=== PATIENT | female | born 2005 | race American Indian/Alaskan Native ===

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

== ENCOUNTER 2024-01-23 17:46 | Emergency (ER) | payer MEDICAID, SELFPAY ==
[2024-01-23 18:02] VITALS: BP 138/80; PULSE 95; RESP 18; TEMP 36.9; O2SAT 95; BMI 38.2
--- NOTE | 2024-01-23 18:06 | EDNOTE_ITS ---
<Statement entered by Naomie Summers MD - 01/23/24 22:01> As co-signing physician, I was present and available for consult prn. I concur with the plan and care as documented by the midlevel provider. ED Fever RME/HPI General Chief Complaint: Fever Stated Complaint: FEVER WITH SORE THROAT; 26 WKS PREG Time Seen by Provider: 01/23/24 18:04 Arrival date/time: 01/23/24 17:46 18 year old female present to emergency room with c/o of fever and sore throat for 2 days. per patient recently co worker + strep and concerns she got exposed LOCATION: posterior oral pharynx SEVERITY: Symptoms are described as being severe with limitations on activities of daily living QUALITY: Symptoms are described as being dull or achy CONTEXT: The patient is unable to identify any inciting events. DURATION/TIMING: The symptoms started approximately 2 day ago and have been constant this then. ASSOCIATED SYMPTOMS: The patient is unable to identify any other associated symptoms. MODIFYING FACTORS: worse with swallowing PERTINENT ROS: denies any food or liquids getting stuck, denies any generalized weakness, denies any trauma, no chest pain, no abdominal pain, no rashes, no joint swelling no hematuria, dysuria, urgency,frequency, flank/abd pain or vag bleeding REVIEW OF SYSTEMS: See History of Present Illness - with the exception of those mentioned in the history of present illness, all other systems reviewed and reported as negative GENERAL: In general the patient is awake, interactive, in an emergency department gurney. HEAD/EYES/EARS/NOSE/THROAT: normo-cephalic, atraumatic, mucus membranes are moist, anicteric, palpebral conjunctiva is pink, trachea is midline. CARDIOVASCULAR: regular rate and regular rhythm, no murmurs, heart sounds are not distant, strong pulses in all four extremities that are equal and symmetric bilateral upper and lower extremities, normal capillary refill. CHEST/PULMONARY: normal chest rise and fall, good air movement, clear to auscultation bilaterally, normal inspiratory to expiratory ratios without evidence of respiratory distress. NECK: No midline/Paraspinal tenderness, no step off ROM/Strenght intact No Kernig and bruzinski sign. No trauma ABDOMEN: soft, not tender, no masses appreciated BACK: normal range of motion without pain. NEUROLOGICAL: cranio-facial features are symmetric, moves all four extremities equally without obvious limitations or weakness. EXTREMITY: no tenderness to palpation over the long bones or large joints of the bilateral upper and lower extremities, no joint swelling, no joint erythema, no signs of trauma, no unilateral leg swelling and no peripheral edema. SKIN: warm, dry, well-perfused, no jaundice, no rash, no telangiectasias or petechia. PSYCH: calm, cooperative, no evidence of psychosis or agitation Related Data Home Medications ?Medication ?Instructions ?Recorded ?Confirmed vit no.95-ferrous 1 tab PO DAILY 12/31/23 12/31/23 fumarate 28 mg-folic acid 800 mcg tablet () Previous Rx's ?Medication ?Instructions ?Recorded albuterol sulfate 90 mcg/actuation 2 inh inhalation QID PRN shortness 09/19/23 breath activated powder of breath or wheezing #1 ea inhaler,sensor (Proair Digihaler) Allergies Allergy/AdvReac Type Severity Reaction Status Date / Time No Known Allergies Allergy Verified 01/23/24 17:48 Course Course Course Narrative: strep, covid/flu Quality Measures none Orders Category Date Time Status Bedside COVID-19 Antigen Test NOW Care 01/23/24 18:04 Completed Bedside Influenza A&B Antigen Test NOW Care 01/23/24 18:05 Completed Strep A Rapid Stat Lab 01/23/24 18:09 Completed Vital Signs Vital signs: Vital Signs Temperature 98.5 F 01/23/24 18:02 Pulse Rate 95 01/23/24 18:02 Respiratory Rate 18 01/23/24 18:02 Blood Pressure 138/80 H 01/23/24 18:02 Pulse Oximetry (%) 95 01/23/24 18:02 Oxygen Delivery Method Room Air 01/23/24 18:02 Fever Patient data External records reviewed:: [facility] previous records and None Clinical information provided by:: patient and family Social determinants that could affect healthcare access:: none Patient has the following chronic illnesses:: none How is presenting disease/condition affected by chronic disease/condition?: no chronic disease Evaluation data The following diagnostics were reviewed and interpreted by me:: lab results Lab and/or radiology exams considered but not ordered:: none Interpretation Summary: strep covid/flu Medications / Prescriptions Medications or Prescriptions considered but not ordered:: none Medication administrations:: none Consultations Consultation(s) initiated? (list below): No Diagnosis Fever Differential Diagnosis: viral infection, influenza and other (strep) Most likely diagnosis given after review of the tests above:: viral infection Admission Indicated Admission indicated?: not indicated Admission Request Was there a request for admission?: No Disposition Plan Disposition Plan: Discharge Discharge Attestation Discharge Attestation: The patient and all family members were given an opportunity to ask questions and understood the discharge instructions. Discharge instructions specifically effects, indications for sooner follow up or return to the emergency department, and the expected course of current diagnosis. Patient condition: Stable Discharge Plan Plan Patient Disposition: HOME (Self Care) Health Concerns: Follow with PMD as directed Take tylenol as need Return to ED if sx worsen Prescriptions/Referrals Prescriptions/Med Rec: No Action Proair Digihaler 90 mcg/actuation aero powdr breath act w/sensor 2 inh inhalation QID PRN (Reason: shortness of breath or wheezing) Qty: 1 0RF PNV cmb#95-ferrous fumarate-FA [] 28 mg iron- 800 mcg tablet 1 tab PO DAILY Patient Comments: TAKE 1 TABLET BY MOUTH ONCE DAILY Referrals: No Primary/Family,Physician [Primary Care Provider] - In 1 week Problem List Clinical Impression: Viral infection Patient/Caregiver Discharge Instructions Education Materials: ED Viral Syndrome (Adult) Print Language: [place] Stand Alone Forms: Alejandra Award Info., Work/School Release, Patient Portal Info Letter
[2024-01-23 19:06] LABS: Strep A Rapid Negative (Negative)
[2024-01-23 19:28] VITALS: RESP 18
== END 2024-01-23 19:28 | disposition home or self-care (01) ==
PROVIDERS: Physician Assistant; Emergency Provider Emergency Medicine
DX: B34.9 Viral infection, unspecified (principal)
CPT/HCPCS: 87400; 87651; 87811; 99283

== ENCOUNTER 2024-02-04 18:58 | Observation (INO) | payer MEDICAID, SELFPAY ==
[2024-02-04 19:06] VITALS: BP 128/61; PULSE 81
[2024-02-04 19:33] VITALS: TEMP 36.7; BMI 42.0
--- NOTE | 2024-02-04 19:33 | XR_ITS ---
Examination: Complete OB ultrasound greater than 14 weeks Date and time of exam: February 04, 2024 2018 hrs. Indications: Decreased movement beginning 90 minutes ago Findings: Viable intrauterine single fetus with single amniotic sac presentation cephalic spine maternal right Cardiac motion 132 BPM Placenta posterior grade 1 Umbilical cord insertion seen Amniotic fluid index 15.4 cm Cervix 3.2 cm Right ovary 3.3 x 2.2 cm arterial flow Left ovary obscured by bowel gas. Composite estimated gestational age based on BPD, head circumference, abdominal circumference, femur length is 27 weeks 0 days Estimated weight 920.7 g. Survey of intracranial anatomy, spinal anatomy, abdominal anatomy, four-chamber heart performed with no abnormalities identified. Impression: Viable intrauterine gestation cephalic presentation.
[2024-02-04 21:05] VITALS: BP 126/64; PULSE 78
== END 2024-02-04 21:55 | disposition home or self-care (01) ==
PROVIDERS: Admitting Provider Obstetrics & Gynecology; Visit Provider Obstetrics & Gynecology
DX: O36.8120 Decreased fetal movements, second trimester, not applicable or unspecified (principal); Z3A.27 27 weeks gestation of pregnancy
CPT/HCPCS: 59025; 59899; 76805

== ENCOUNTER 2024-02-23 18:30 | Outpatient (CLI) | payer MEDICAID, SELFPAY ==
[2024-02-23] VITALS (8 sets, daily range): PULSE 68–86; RESP 18; TEMP 36.7; O2SAT 98–100; BMI 40.8
== END 2024-02-23 19:35 | disposition home or self-care (01) ==
LOC: S4S1 18:38 → S4SX 18:38
PROVIDERS: Referring Provider Obstetrics & Gynecology; Visit Provider Obstetrics & Gynecology
DX: O36.8130 Decreased fetal movements, third trimester, not applicable or unspecified (principal); Z3A.30 30 weeks gestation of pregnancy
CPT/HCPCS: 59025

== ENCOUNTER 2024-03-01 11:23 | Observation (INO) | payer MEDICAID, SELFPAY ==
[2024-03-01 11:30] VITALS: PULSE 111; O2SAT 99
[2024-03-01 11:31] VITALS: BP 136/75; PULSE 103
[2024-03-01 11:35] VITALS: PULSE 100; O2SAT 99
[2024-03-01 11:36] VITALS: BP 136/75; PULSE 92; RESP 16; RESP 99; TEMP 36.6; O2SAT 99; BMI 41.1
[2024-03-01 11:40] VITALS: PULSE 96; O2SAT 99
[2024-03-01 11:45] VITALS: PULSE 95; O2SAT 100
--- NOTE | 2024-03-01 12:20 | PD.LDPN ---
Documentation for date of: 03/01/24 OB Labor Progress Note Assessment and Plan Comments: Ankita is a 19yo with SIUP at 31+wk presenting to L&D for lack of movement since 0100 last night. She notes baby usually moves at night and in the morning, especially after eating, but she hasn't felt movement this morning even after eating. She notes no ctx, no lof, no vaginal bleeding. This has been uncomplicated, she has had regular OB care with [place] OBGYN [place] city. She does have history significant for term IUFD, which has made her understandably more nervous about feeling regular movement. Plan is in place with her OBGYN to begin regular APFTs in office starting at 32 weeks. ROS negative other than what was described above. Vitals wnl, afebrile General: well developed, well nourished, no acute distress, conversant Cardiac: normal heart rate Lungs: breathing without distress Abdomen: soft, gravid, non-tender, no rebound or guarding Extremities: no pain with palpation of calves NST: reassuring for gestational age with 10x10 accels, no decels, mod jose l Bedside ultrasound performed by Dr. Fairchild: SIUP with cephalic presentation, +FCA, +FM, posterior placenta, LUCHO 13cm Assessment: Ankita is a 19yo with SIUP at 31+wk with decreased movement. Vitals wnl, benign exam. Reassuring status based on NST/LUCHO (modified BPP). Plan: -Provided reassurance regarding findings -Continue routine follow up with OBGYN, begin APFTs at 32 weeks as planned -Discussed return precautions at length including FKCs Dr. Fairchild
== END 2024-03-01 12:25 | disposition home or self-care (01) ==
PROVIDERS: Admitting Provider Obstetrics & Gynecology; Visit Provider Obstetrics & Gynecology
DX: O36.8130 Decreased fetal movements, third trimester, not applicable or unspecified (principal); Z3A.31 31 weeks gestation of pregnancy
CPT/HCPCS: 59025; 59899

== ENCOUNTER 2024-03-17 18:02 | Observation (INO) | payer MEDICAID, SELFPAY ==
[2024-03-17] VITALS (36 sets, daily range): BP systolic 117–140; BP diastolic 59–71; PULSE 75–108; RESP 16–98; TEMP 36.7; O2SAT 94–100; BMI 41.5
[2024-03-17 19:09] LABS: Collection Type, Urine Clean Catch
[2024-03-17] MEDS: ACETAMINOPHEN 500 MG TABLET 1000 MG PO (19:15)
[2024-03-17 19:22] LABS: Creatinine,Random Urine 55 mg/dL (30-125); Protein Total, Random Urine 14 mg/dL (1-14)
[2024-03-17 19:25] LABS: Bacteria,Urine 3+; Bilirubin,Urine Negative (Negative); Blood,Urine Negative (Negative); Clarity,Urine Turbid (Clear/Hazy); Color,Urine Lt-Yellow (Lt Yel-Yel); Glucose, Urine Negative (Negative); Ketones,Urine Negative (Negative); Leukocyte Esterase,Urine Positive (Negative); Nitrite,Urine Negative (Negative); Protein,Urine Negative (Neg - Trace); RBC,Urine 2 /hpf (0-3); Squamous Epithelial Cell,Urine 10 /hpf (0-5); Urobilinogen,Urine Negative mg/dL (0.0-1.0); WBC,Urine 4 /hpf (0-5)
[2024-03-17 19:25] LABS: Basophils % (Auto) 0 % (0-2.5); Eosinophils # (Auto) 0.3 Thou/mm3 (0.0-0.5); Eosinophils % (Auto) 2 % (0-10); Hematocrit 34.3 % (36.0-46.0); Hemoglobin 11.5 g/dL (12.0-16.0); Immature Granulocytes % (Auto) 1 % (0-0); Immature Granulocytes Auto 0.11 Thou/mm3 (0.00-0.00); Lymphocytes # (Auto) 2.2 Thou/mm3 (1.0-4.8); Lymphocytes % (Auto) 15 % (10-50); Mean Corpuscular HGB Conc 33.5 g/dl (31.0-37.0); Mean Corpuscular Hemoglobin 28.5 pg (25.0-35.0); Mean Corpuscular Volume 85 fL (80-100); Monocytes # (Auto) 1.3 Thou/mm3 (0.0-0.8); Monocytes % (Auto) 9 % (0-12); Neutrophils # (Auto) 10.7 Thou/mm3 (1.8-7.7); Neutrophils % (Auto) 73 % (37-80); Nucleated Red Blood Cell % 0 /100 WBC (0); Platelet Count 174 Thou/mm3 (140-440); RDW Standard Deviation 39.9 fL (36.4-46.3); Red Blood Count 4.04 Miln/mm3 (4.00-5.20); White Blood Count 14.6 Thou/mm3 (4.5-11.0)
[2024-03-17 19:46] LABS: Fibrinogen 406 mg/dL (175-375); Partial Thromboplastin Time 23.4 Seconds (22.0-36.0); Prothrombin Time 10.5 Seconds (9.0-12.2)
[2024-03-17 19:49] LABS: Alanine Aminotransferase 20 U/L (10-49); Albumin, Serum 3.6 gm/dL (3.5-5.0); Albumin/Globulin Ratio 1.4 (1.2-2.2); Alkaline Phosphatase 92 U/L (46-116); Anion Gap 9 (7-16); Aspartate Amino Transferase 12 U/L (0-34); BUN/Creatinine Ratio 10 Ratio (12-20); Bilirubin,Total 0.3 mg/dL (0.3-1.2); Blood Urea Nitrogen 6 mg/dL (9-23); Calcium 8.8 mg/dL (8.3-10.6); Calcium (Corrected) 9.1 mg/dL (8.5-10.1); Carbon Dioxide 22.9 mMol/L (20.0-31.0); Chloride 106 mMol/L (98-107); Creatinine (Component) 0.6 mg/dL (0.6-1.3); Estimated Creatinine Clearance 194.6 mL/min (>60); Globulin 2.6 gm/dL (2.3-3.5); Glucose 95 mg/dL (74-106); LDH (Lactate Dehydrogenase) 185 U/L (120-246); Osmolality,Calculated 273 (275-295); Potassium 3.6 mMol/L (3.4-5.1); Sodium 138 mMol/L (136-145); Total Protein 6.2 gm/dL (5.7-8.2); Uric Acid 4.5 mg/dL (3.1-7.8); eGFR > 60 See Note
--- NOTE | 2024-03-17 20:37 | PD.LDPN ---
Documentation for date of: 03/17/24 OB Labor Progress Note Assessment and Plan Comments: Triage Note Ankita is a 19yo with SIUP at 33w4d presenting to L&D by instruction of home health nurse for PIH workup. She had mild range bp noted when she had visit by home health nurse today and this was first occasion in . She also noted to the nurse that she had a headache. Didn't take tylenol at home, just tried to nap but headache persisted. She notes no painful/regular ctx, no vaginal bleeding, no lof. Normal movement. Only complaint is SARABIA. She denies vision changes and RUQ pain. Pertinent PMhx/ hx: Patient receives care with OBGYN Dr. Brito in [place] and is followed closely with growth scans for IUGR which as of today resolved, per patient (13%ile on growth scan). She also has history of an IUFD at term in 2022 and was delivered via section. Plan for delivery is RLTCS at 37 weeks. She has history of a seizure-like disorder and has care with a neurologist at [facility]. Only takes a PNV. ROS negative other than what was described above. 2 barely mild range bp's right after one another followed by 9 normal blood pressures, afebrile General: well developed, well nourished, no acute distress, conversant Cardiac: normal heart rate Lungs: breathing without distress Abdomen: soft, gravid, non-tender, no rebound or guarding Extremities: trace BLE edema NST: Reactive, +accels, no decels, mod jose l [place]: no ctx pattern Labs: Hgb 11.5 Plt 174 serum creat 0.6 AST/ALT wnl urine prot:creat 0.[address] Fairchild: SIUP with cephalic presentation, MVP 5cm, +FCA, +FM, posterior placenta Assessment: Ankita is a 19yo with SIUP at 33w4d with no evidence of GHTN or pre-eclampsia at this time. Overwhelmingly normotensive, benign exam. Reassuring status. Headache has improved. Plan: -Discussed findings and provided reassurance, answered all questions to patient and partner's apparent satisfaction -Continue routine follow up with OBGYN on Thursday as scheduled. Discussed importance of conveying today's triage assessment to her OBGYN. -Discussed ok to take tylenol 1000mg PO Q6hr prn headache + massage, warm shower -Discussed return precautions at length, especially for persistent headache, vision changes and RUQ pain Leesa Fairchild MD
== END 2024-03-17 21:12 | disposition home or self-care (01) ==
PROVIDERS: Admitting Provider Obstetrics & Gynecology; Visit Provider Obstetrics & Gynecology
DX: O26.893 Other specified pregnancy related conditions, third trimester (principal); R51.9 Headache, unspecified; Z3A.33 33 weeks gestation of pregnancy
CPT/HCPCS: 36415; 59025; 59899; 80053; 81001; 82570; 83615; 84156; 84550; 85025; 85384; 85610; 85730; A9270

== ENCOUNTER 2024-03-21 13:41 | Observation (INO) | payer MEDICAID, SELFPAY ==
[2024-03-21 13:45] VITALS: BP 151/68; PULSE 110; RESP 16; RESP 98; TEMP 36.8; BMI 41.5
[2024-03-21 13:51] VITALS: BP 130/63; PULSE 97
== END 2024-03-21 14:10 | disposition home or self-care (01) ==
PROVIDERS: Admitting Provider Obstetrics & Gynecology; Visit Provider Obstetrics & Gynecology
DX: O36.8130 Decreased fetal movements, third trimester, not applicable or unspecified (principal); Z3A.34 34 weeks gestation of pregnancy
CPT/HCPCS: 59025; 59899

== ENCOUNTER 2024-03-24 21:35 | Observation (INO) | payer MEDICAID, SELFPAY ==
[2024-03-24] VITALS (15 sets, daily range): BP systolic 111–128; BP diastolic 56–79; PULSE 67–90; RESP 15–98; TEMP 37.4; O2SAT 91–100; BMI 41.4
--- NOTE | 2024-03-24 22:01 | XR_ITS ---
Examination: Complete OB ultrasound greater than 14 weeks Date and time of exam: March 24, 2024 1008 hours INDICATIONS: Decreased movement today, leaking amniotic fluid Findings: Viable intrauterine single fetus with single amniotic sac presentation cephalic Cardiac motion 143 BPM Placenta posterior grade 2 Umbilical cord insertion 3 vessel seen Amniotic fluid index 10.5 cm spine maternal left Cervix 3.2 cm Ovaries obscured by bowel gas. Composite estimated gestational age based on BPD, head circumference, abdominal circumference, femur length is 34 weeks 1 day Estimated weight 2300 g. Survey of intracranial anatomy, spinal anatomy, abdominal anatomy, four-chamber heart performed with no abnormalities identified. Impression: Viable intrauterine gestation cephalic presentation.
--- NOTE | 2024-03-24 22:26 | XR_ITS ---
Examination: Biophysical profile, ultrasound Date and time of exam: March 24, 2024 10:29 PM INDICATIONS: Decreased movement today, leaking amniotic fluid Technique: Multiple transabdominal sonographic images of the pelvis abdomen obtained. Attention is directed to the breathing movement, gross body movement, amniotic fluid volume and tone. Findings: Amniotic fluid index 9.8 cm Total biophysical profile is 8 of 8. breathing movement is 2. Gross body movement is 2. tone is 2. Qualitative amniotic fluid volume is 2 Impression: Biophysical profile is 8 of 8.
[2024-03-24 22:40] LABS: ROM Kit Lot # 57809118; ROM Swab Mixed By: DELEN1; Rupture of Fetal Membranes Negative (Negative); Swb Mxed in Solvent 1 min? Yes
== END 2024-03-24 23:45 | disposition home or self-care (01) ==
PROVIDERS: Admitting Provider Obstetrics & Gynecology; PCP Obstetrics & Gynecology; Visit Provider Obstetrics & Gynecology
DX: O36.8130 Decreased fetal movements, third trimester, not applicable or unspecified (principal); Z3A.34 34 weeks gestation of pregnancy
CPT/HCPCS: 59025; 59899; 76805; 76819; 84112